=== PATIENT | female | born 1965 | race Caucasian/White ===

== ENCOUNTER → 2020-02-18 12:35 | Outpatient (BNVA) | payer BC, SELFPAY | PROVIDERS: Family Provider Family Medicine; Visit Provider Nurse Practitioner | DX: M54.5 Low back pain (principal); N39.0 Urinary tract infection, site not specified | CPT/HCPCS: 81000 ==

== ENCOUNTER 2020-02-24 16:11 | Inpatient (IN) | payer BC, SELFPAY ==
[2020-02-24] VITALS (9 sets, daily range): BP systolic 104–155; BP diastolic 59–84; PULSE 78–101; RESP 16–18; TEMP 37.4–39.5; O2SAT 90–98; BMI 28.3
[2020-02-24 17:49] LABS: Hematocrit 37.6 % (37.0-47.0); Hemoglobin 12.2 g/dL (11.5-15.3); Mean Corpuscular HGB Conc 32.4 g/dL (30.0-36.0); Mean Corpuscular Hemoglobin 28.2 pg (28.0-34.0); Mean Platelet Volume 10.5 fL (7.4-10.4); Nucleated Red Blood Cells % 0 %; Platelet Count 147 10^3/cmm (130-400); Red Blood Count 4.32 10^6/uL (4.1-5.3); Red Cell Distribution Width 14.2 % (12.1-15.1); White Blood Count 7.9 10^3/uL (4.0-10.0)
--- NOTE | 2020-02-24 17:52 | US_ITS ---
WS: [id number] ULTRASOUND ABDOMEN LIMITED CLINICAL INFORMATION: RUQ pain; N/V/D COMPARISON: None. FINDINGS: Liver Size: Normal. Craniocaudal length: 10.3 cm. Echogenicity: Normal. Surface nodularity: None. Mass (size and location): None. Bile ducts Intrahepatic ducts: Normal. Common bile duct diameter: 0.5 cm. Gallbladder Normal. Gallstones: None. Gallbladder sludge: None. Gallbladder wall thickening: None. Pericholecystic fluid: None. Sonographic Carl sign: Absent. Pancreas Not visualized Right kidney: Normal. Hydronephrosis: None. Size: 10.5 cm x 5.6 cm x 5.0 cm. Abdominal aorta and IVC Visualized portions are normal. Ascites: None. US/US gall bladder [id number] IMPRESSION: Normal right upper quadrant ultrasound
--- NOTE | 2020-02-24 17:52 | CTR_ITS ---
PROCEDURE INFORMATION: Exam: CT Abdomen And Pelvis With Contrast Exam date and time: 02/24/2020 6:07 PM Age: 54 years old Clinical indication: Nausea and vomiting and other: Diarrhea; Abdominal pain; Additional info: R sided abdominal pain; N/v/d; Fevers TECHNIQUE: Imaging protocol: Computed tomography of the abdomen and pelvis with intravenous contrast. Radiation optimization: All CT scans at this facility use at least one of these dose optimization techniques: automated exposure control; mA and/or kV adjustment per patient size (includes targeted exams where dose is matched to clinical indication); or iterative reconstruction. Contrast material: OMNI 300; Contrast volume: 95 ml; Contrast route: INTRAVENOUS (IV); COMPARISON: US gall bladder [id number] 02/24/2020 6:22 PM RADIATION DOSE METRICS: Total DLP (mGy-cm): 735.86 FINDINGS: Lungs: There is subpleural atelectasis of the dependent portions of the lungs. Pleural space: There are trace pleural effusions. Mediastinal space: A small hiatal hernia is present. Liver: There is a diffuse decrease in hepatic parenchymal density, consistent with fatty infiltration. Gallbladder and bile ducts: There is a small amount of sludge or stones in the gallbladder. There is no wall thickening or pericholecystic fluid to suggest cholecystitis. There is no common bile duct dilation. Pancreas: Normal. No ductal dilation. Spleen: The spleen is normal. An accessory splenule is present. Adrenals: Normal. No mass. Kidneys and ureters: The left kidney is normal. There is mild dilatation of the right renal pelvis but no calyceal dilatation. No contrast in the right ureter or right ureteral jet. There is a 3 mm calculus distal right ureter at the level of the right hip joint. There is a left ureteral jet. Stomach and bowel: There is no evidence of intestinal perforation or obstruction. Moderate diverticulosis is present in the distal colon. There is no evidence of colitis/diverticulitis. Appendix: A normal appendix is identified. Intraperitoneal space: Unremarkable. No free air. No significant fluid collection. Vasculature: The aorta demonstrates mild atherosclerotic calcification. Lymph nodes: Unremarkable.No enlarged lymph nodes. Bladder: The bladder is normal. Reproductive: Unremarkable as visualized. Bones/joints: Unremarkable. No acute fracture. Soft tissues: There is a fat-containing umbilical hernia. CT/CT abdomen pelvis w con* [id number] IMPRESSION: 1. There is mild dilatation of the right renal pelvis but no calyceal dilatation. No contrast in the right ureter or right ureteral jet. There is a 3 mm calculus distal right ureter at the level of the right hip joint. 2. Unremarkable appendix. No bowel thickening or inflammatory changes. Unremarkable appendix. Radiation Dose CTDIVOL = (mGy): DLP = 735.86 (mGy-cm)
--- NOTE | 2020-02-24 17:53 | XRR_ITS ---
PROCEDURE INFORMATION: Exam: XR Chest, 1 View Exam date and time: 02/24/2020 6:13 PM Age: 54 years old Clinical indication: Patient HX: C/O fever, malaise, headache, nausea, diarrhea; Additional info: Fevers, malaise. Diagnosed with UTI 02/17 TECHNIQUE: Imaging protocol: XR of the chest Views: 1 view. COMPARISON: CR Chest 1 [place] [id number] 09/15/2015 11:08 AM FINDINGS: Lungs: Unremarkable. No consolidation. Pleural space: Unremarkable. No pleural effusion. No pneumothorax. Heart/Mediastinum: Unremarkable. No cardiomegaly. Bones/joints: Unremarkable. XR/XR chest 1V portable [id number] IMPRESSION: No acute findings.
--- NOTE | 2020-02-24 17:54 | W.ED.GENADLT ---
Documented by User: MAHOGANY Galindo 02/24/20 20:58 HPI - General Adult General: Chief complaint: Nausea/Vomiting/Diarrhea Stated complaint: worsening UTI symptoms despite outpt treatment Time Seen by Provider: 02/24/20 17:18 Source: patient Mode of arrival: ambulatory Limitations: no limitations History of Present Illness: HPI narrative: Patient is a very nice 54-year-old female who presents to ED today with multiple complaints. Patient states she has been running fevers of up to 102?103 for the past week. She was seen at urgent care on 02/17 and diagnosed with a urinary tract infection and treated with Bactrim. Patient states she was not having UTI symptoms at the time apart from some mild lower back pain. Patient states since then she has been having joint pain, muscle aches. She reports a headache. She is having some right-sided abdominal pain accompanied with nausea and vomiting as well as diarrhea. She reports approximately 4 diarrhea stools a day. She has not had any hematemesis, melanotic stools, or hematochezia. Patient denies sick contacts. She is not having any shortness of breath, difficulty breathing, chest pain, cough. She denies sore throat, nasal congestion, rhinorrhea. She has not noticed a rash. She does admit to recent tick bites and was found on exam to have an engorged tick on her right upper arm. Onset (ago): day(s) Associated symptoms: Reports headache(s), malaise, nausea and vomiting; Deny chest pain, dyspnea, rash, palpitations or syncope Review of Systems Const: Reports: fever(s), chills, body aches, change in appetite, fatigue and malaise Eyes: Denies: change in vision, blurry vision, photophobia, floaters or seeing flashes ENMT: Denies: throat pain, odynophagia or nasal congestion Card: Denies: chest pain, palpitations, irregular heart rhythm, edema, lightheadedness, syncope, pre-syncope, dyspnea on exertion or orthopnea Resp: Denies: dyspnea, productive cough or pain on inspiration GI: Reports: abdominal pain, nausea, vomiting and diarrhea; Denies: heartburn, hematochezia or melena : Denies: flank pain, difficulty voiding, dysuria, urinary frequency, urinary urgency or urinary hesitancy Musc: Denies: neck pain, back pain or joint pain Skin/Breast: Denies: rash Neuro: Reports: headache(s); Denies: numbness in extremities, weakness in extremities or sensory changes PFSH ED PFSH: Social History (Updated 02/24/20 @ 17:12 by Berto Live RN) Smoking and tobacco status: never smoked Alcohol intake: never Substance/Drug Use: never Physical Exam Const: COMMON NORMALS: no acute distress, average body habitus, patient oriented x3, no limitations, healthy appearing, alert and well nourished GENERAL APPEARANCE: cooperative ORIENTATION/CONSCIOUSNESS: Yes oriented to person, Yes oriented to place and Yes oriented to time OTHER: looks like she doesn't feel well HENMT: COMMON NORMALS: normocephalic, atraumatic, hearing grossly normal bilaterally, external ears normal, EAC's normal, TM's normal bilaterally, Normal external nose present, Normal nasal mucous membranes and turbinates present, moist oral mucous membranes and oropharynx normal HEAD & SCALP: normal to inspection, normocephalic and atraumatic FACE & SINUS: normal facial exam and sinuses nontender NOSE: Normal external nose present and Normal nasal mucous membranes and turbinates present EXTERNAL EAR: Yes external ears normal EXTERNAL AUDITORY CANAL: EAC's normal TYMPANIC MEMBRANE: TM's normal bilaterally Eye: COMMON NORMALS: Equal, round and reactive pupils present, EOMs intact bilaterally, conjunctivae normal and no scleral icterus CONJUNCTIVA: Yes conjunctivae normal PUPIL: Yes Equal, round and reactive pupils present Neck/C-Spine: COMMON NORMALS: full ROM, no lymphadenopathy and no meningeal signs Chest: COMMONS NORMALS: normal inspection of the chest and normal palpation of entire chest wall Resp: COMMON NORMALS: normal respiratory effort and clear to auscultation bilaterally AUSCULTATION: clear to auscultation bilaterally Cardio: COMMON NORMALS: regular rate and regular rhythm RATE: regular rate RHYTHM: regular rhythm GI: COMMON NORMALS: Normal to inspection, nondistended, normoactive bowel sounds present, Soft to palpation, No hepatosplenomegaly present and no masses PALPATION: Yes Soft to palpation, Yes Tenderness to palpation present (GI) (RUQ, throughout lower abdomen) and Yes No hepatosplenomegaly present : COMMON NORMALS: Yes no CVA tenderness BLADDER/KIDNEY EXAM: Yes no CVA tenderness Back/Pelvis: COMMON NORMALS: no CVA tenderness Extremity: COMMON NORMALS: normal to inspection, capillary refill normal, no clubbing, cyanosis or edema, no calf tenderness and no pedal edema Neuro: FAISAL COMA SCALE: document GCS findings [place] coma scale eye opening: Spontaneous Faisal coma scale verbal response: Orientated [place] coma scale motor response: Obey commands [place] coma scale total score: 15 COMMON NORMALS: patient oriented x3, CN's II-XII intact bilaterally, moves all extremities, no focal motor deficits, no sensory deficits noted and gait normal SENSORIUM/ORIENTATION: Yes alert, Yes oriented to person, Yes oriented to place and Yes oriented to time MENINGEAL SIGNS: Yes no meningeal signs Skin: COMMON NORMALS: no rashes or lesions noted GENERAL SKIN EXAM: no rashes or lesions noted OTHER: engorged tick noted to R UE Course Consultations: Consultation #1: Dr. Becerra-accepts patient Vital Signs: Vital signs: Vital Signs Temperature 99.3 F 02/24/20 19:33 Pulse Rate 81 02/24/20 20:25 Respiratory Rate 17 02/24/20 20:25 Blood Pressure 121/63 02/24/20 20:25 Pulse Oximetry 95 02/24/20 20:25 MDM - General Adult MDM Narrative: Medical decision making narrative: Patient comes in today tachycardic and febrile. She complains of fevers, joint pains, headache, right-sided abdominal pain, nausea/vomiting. She has a known tick bite to her right upper arm. Labs showing mild hyponatremia and elevated LFTs which could be consistent with tick illness. Gallbladder ultrasound obtained due to elevated LFTs and her right-sided abdominal pain-this was negative. CT of her abdomen and pelvis showed a 3 mm right distal ureter stone which would explain her abdominal pain. UA is mildly suspicious for a UTI/she has negative nitrates and negative leukocyte esterase. This will be cultured. Patient has not been able to hold down her home medications at home due to the vomiting. I spoke to Dr. Becerra about admitting the patient for IV antibiotics. I have started her on IV doxycycline and he recommended IV Rocephin to cover her for UTI until we get culture report. I also spoke to Dr. Crocker regarding patient. Lab Data: Labs: Lab Results 07/14/20 07/14/20 07/14/20 Range/Units 17:30 17:30 17:30 WBC 7.9 (4.0-10.0) 10^3/ uL RBC 4.32 (4.1-5.3) 10^6/u L Hgb 12.2 (11.5-15.3) g/dL Hct 37.6 (37.0-47.0) % MCV 87.0 (81-99) fL MCH 28.2 (28.0-34.0) pg MCHC 32.4 (30.0-36.0) g/dL RDW 14.2 (12.1-15.1) % Plt Count 147 (130-400) 10^3/c mm MPV 10.5 H (7.4-10.4) fL Lymph % (Auto) Not Reportable [place] % (Auto) Not Reportable Lymph # (Auto) Not Reportable [place] # (Auto) Not Reportable Nucleated RBC % (a uto) 0 % Total Counted 100 (0-100) Atypical Lymphs % 13.0 H (0-5) % Segmented Neutroph ils 57 % Abs Segm Neuts (Ma n) 4.5 (1.6-7.1) 10/cmm Absolute Lymphocyt es 3.1 (1.2-3.4) 10^3/c mm Lymphocytes (Manua l) 26 % Monocytes (Manual) 4.0 % Absolute Monocytes 0.3 (0.1-0.6) 10^3/c mm Nucleated RBCs # 0.0 /100WBC Platelet Estimate Normal (Normal) Sodium 129 L (136-145) mmol/L Potassium 3.6 (3.5-5.1) mmol/L Chloride 91 L (98-107) mmol/L Carbon Dioxide 24 (22-29) mmol/L Anion Gap 17.6 (5-19) BUN 16 (6-20) mg/dL Creatinine 0.8 (0.5-0.9) mg/dL GFR Calculation 75.0 L (90-130) mL/min Glucose 117 H (65-115) mg/dL Calculated Osmolal ity 265 L (285-295) mOsm/k g Lactic Acid (0.5-2.2) mmol/L Calcium 8.5 (8.5-10.5) mg/dL Total Bilirubin 0.5 (0.15-1.2) mg/dL AST 127 H (0-32) U/L ALT 168 H (0-33) U/L Alkaline Phosphata se 91 (35-105) IU/L Total Protein 7.4 (6.6-8.7) g/dL Albumin 4.1 (3.5-5.2) g/dL Globulin 3.3 (1.3-4.6) g/dL Lipase (13-60) U/L HCG, Qual Negative (Negative) Urine Color (Yellow) Urine Appearance (CLEAR) Urine pH (5-7) Ur Specific Gravit y (1.005-1.030) Urine Protein (Negative) Urine Glucose (UA) (Normal) Urine Ketones (Negative) Urine Blood (Negative) Urine Nitrate (Negative) Urine Bilirubin (NEGATIVE) Urine Urobilinogen (Negative) mg/dL Ur Leukocyte Cheryl ase (Negative) Urine RBC (0-2) /hpf Urine WBC (0-5) /hpf Ur Squamous Epith Cells (0-5) Urine Bacteria (NONE) Urine Mucus Influenza Type A A g (Negative) Influenza Type B A g (Negative) 02/24/20 02/24/20 02/24/20 Range/Units 17:30 17:30 17:40 WBC (4.0-10.0) 10^3/ uL RBC (4.1-5.3) 10^6/u L Hgb (11.5-15.3) g/dL Hct (37.0-47.0) % MCV (81-99) fL MCH (28.0-34.0) pg MCHC (30.0-36.0) g/dL RDW (12.1-15.1) % Plt Count (130-400) 10^3/c mm MPV (7.4-10.4) fL Lymph % (Auto) [place] % (Auto) Lymph # (Auto) [place] # (Auto) Nucleated RBC % (a uto) % Total Counted (0-100) Atypical Lymphs % (0-5) % Segmented Neutroph ils % Abs Segm Neuts (Ma n) (1.6-7.1) 10/cmm Absolute Lymphocyt es (1.2-3.4) 10^3/c mm Lymphocytes (Manua l) % Monocytes (Manual) % Absolute Monocytes (0.1-0.6) 10^3/c mm Nucleated RBCs # /100WBC Platelet Estimate (Normal) Sodium (136-145) mmol/L Potassium (3.5-5.1) mmol/L Chloride (98-107) mmol/L Carbon Dioxide (22-29) mmol/L Anion Gap (5-19) BUN (6-20) mg/dL Creatinine (0.5-0.9) mg/dL GFR Calculation (90-130) mL/min Glucose (65-115) mg/dL Calculated Osmolal ity (285-295) mOsm/k g Lactic Acid 1.6 (0.5-2.2) mmol/L Calcium (8.5-10.5) mg/dL Total Bilirubin (0.15-1.2) mg/dL AST (0-32) U/L ALT (0-33) U/L Alkaline Phosphata se (35-105) IU/L Total Protein (6.6-8.7) g/dL Albumin (3.5-5.2) g/dL Globulin (1.3-4.6) g/dL Lipase 33 (13-60) U/L HCG, Qual (Negative) Urine Color Yellow (Yellow) Urine Appearance Clear (CLEAR) Urine pH 5 (5-7) Ur Specific Gravit y 1.015 (1.005-1.030) Urine Protein 2+ H (Negative) Urine Glucose (UA) Norm (Normal) Urine Ketones 1+ H (Negative) Urine Blood 2+ H (Negative) Urine Nitrate Negative (Negative) Urine Bilirubin 1+ H (NEGATIVE) Urine Urobilinogen 4+ H (Negative) mg/dL Ur Leukocyte Cheryl ase Negative (Negative) Urine RBC 5-10 H (0-2) /hpf Urine WBC 5-10 H (0-5) /hpf Ur Squamous Epith Cells 0-4 H (0-5) Urine Bacteria 1+ H (NONE) Urine Mucus 3+ Influenza Type A A g (Negative) Influenza Type B A g (Negative) 02/24/20 Range/Units 19:13 WBC (4.0-10.0) 10^3/ uL RBC (4.1-5.3) 10^6/u L Hgb (11.5-15.3) g/dL Hct (37.0-47.0) % MCV (81-99) fL MCH (28.0-34.0) pg MCHC (30.0-36.0) g/dL RDW (12.1-15.1) % Plt Count (130-400) 10^3/c mm MPV (7.4-10.4) fL Lymph % (Auto) [place] % (Auto) Lymph # (Auto) [place] # (Auto) Nucleated RBC % (a uto) % Total Counted (0-100) Atypical Lymphs % (0-5) % Segmented Neutroph ils % Abs Segm Neuts (Ma n) (1.6-7.1) 10/cmm Absolute Lymphocyt es (1.2-3.4) 10^3/c mm Lymphocytes (Manua l) % Monocytes (Manual) % Absolute Monocytes (0.1-0.6) 10^3/c mm Nucleated RBCs # /100WBC Platelet Estimate (Normal) Sodium (136-145) mmol/L Potassium (3.5-5.1) mmol/L Chloride (98-107) mmol/L Carbon Dioxide (22-29) mmol/L Anion Gap (5-19) BUN (6-20) mg/dL Creatinine (0.5-0.9) mg/dL GFR Calculation (90-130) mL/min Glucose (65-115) mg/dL Calculated Osmolal ity (285-295) mOsm/k g Lactic Acid (0.5-2.2) mmol/L Calcium (8.5-10.5) mg/dL Total Bilirubin (0.15-1.2) mg/dL AST (0-32) U/L ALT (0-33) U/L Alkaline Phosphata se (35-105) IU/L Total Protein (6.6-8.7) g/dL Albumin (3.5-5.2) g/dL Globulin (1.3-4.6) g/dL Lipase (13-60) U/L HCG, Qual (Negative) Urine Color (Yellow) Urine Appearance (CLEAR) Urine pH (5-7) Ur Specific Gravit y (1.005-1.030) Urine Protein (Negative) Urine Glucose (UA) (Normal) Urine Ketones (Negative) Urine Blood (Negative) Urine Nitrate (Negative) Urine Bilirubin (NEGATIVE) Urine Urobilinogen (Negative) mg/dL Ur Leukocyte Cheryl ase (Negative) Urine RBC (0-2) /hpf Urine WBC (0-5) /hpf Ur Squamous Epith Cells (0-5) Urine Bacteria (NONE) Urine Mucus Influenza Type A A g Negative (Negative) Influenza Type B A g Negative (Negative) Imaging Data^: US gallbladder : My impression: Per Kelvin Parekh manufacturing technologist?normal gallbladder study, overlying bowel gas, was not able to visualize pancreas Discharge Plan Discharge Patient Disposition: Admitted As Inpatient Clinical Impression: Tick fever, Calculus of distal right ureter, Urinary tract infection Condition: Stable Prescriptions: No Action lisinopril 20 mg tablet 20 mg PO BID RF: 0 hydrochlorothiazide 25 mg tablet 25 mg PO DAILY RF: 0 aspirin [Adult Aspirin Regimen] 81 mg tablet,delayed release (DR/EC) 81 mg PO DAILY RF: 0 sulfamethoxazole-trimethoprim 800-160 mg tablet 1 tab PO BID 5 Days Qty: 10 RF: 0 Referrals: Umair Quick MD [Primary Care Provider] - Coding Level of Care Code ED Informatics Nurse Specialist for Chg Fwd Exam Comprehensive Documented by User: Jessica Crocker MD 02/24/20 20:17 HPI - General Adult General: Chief complaint: Nausea/Vomiting/Diarrhea Stated complaint: worsening UTI symptoms despite outpt treatment Time Seen by Provider: 02/24/20 17:18 PFS ED PFSH: Social History (Updated 02/24/20 @ 17:12 by Berot Live RN) Smoking and tobacco status: never smoked Alcohol intake: never Substance/Drug Use: never Course ED course: I am seeing this patient with Araceli. The patient appeared quite ill on initial presentation. She was tachycardic with a high fever. She was treated recently for UTI and completed a course of Bactrim. She continues to have right-sided abdominal pain and on exam was found to have a tick which was fully engorged on her right arm. Work-up shows a possible UTI and obviously there is concern for tick illness related to her tick bite. CT showed a kidney stone which was fairly small and distal. She had a relatively normal ultrasound of her gallbladder. Given her ill appearance initially, abnormal vital signs, inability to keep down p.o., she will be admitted to the hospital for IV antibiotics and further monitoring. Vital Signs: Vital signs: Vital Signs Temperature 99.3 F 02/24/20 19:33 Pulse Rate 81 02/24/20 20:25 Respiratory Rate 17 02/24/20 20:25 Blood Pressure 121/63 02/24/20 20:25 Pulse Oximetry 95 02/24/20 20:25 [facility] - General Adult Lab Data: Labs: Lab Results 02/24/20 02/24/20 02/24/20 Range/Units 17:30 17:30 17:30 WBC 7.9 (4.0-10.0) 10^3/ uL RBC 4.32 (4.1-5.3) 10^6/u L Hgb 12.2 (11.5-15.3) g/dL Hct 37.6 (37.0-47.0) % MCV 87.0 (81-99) fL MCH 28.2 (28.0-34.0) pg MCHC 32.4 (30.0-36.0) g/dL RDW 14.2 (12.1-15.1) % Plt Count 147 (130-400) 10^3/c mm MPV 10.5 H (7.4-10.4) fL Lymph % (Auto) Not Reportable [place] % (Auto) Not Reportable Lymph # (Auto) Not Reportable [place] # (Auto) Not Reportable Nucleated RBC % (a uto) 0 % Total Counted 100 (0-100) Atypical Lymphs % 13.0 H (0-5) % Segmented Neutroph ils 57 % Abs Segm Neuts (Ma n) 4.5 (1.6-7.1) 10/cmm Absolute Lymphocyt es 3.1 (1.2-3.4) 10^3/c mm Lymphocytes (Manua l) 26 % Monocytes (Manual) 4.0 % Absolute Monocytes 0.3 (0.1-0.6) 10^3/c mm Nucleated RBCs # 0.0 /100WBC Platelet Estimate Normal (Normal) Sodium 129 L (136-145) mmol/L Potassium 3.6 (3.5-5.1) mmol/L Chloride 91 L (98-107) mmol/L Carbon Dioxide 24 (22-29) mmol/L Anion Gap 17.6 (5-19) BUN 16 (6-20) mg/dL Creatinine 0.8 (0.5-0.9) mg/dL GFR Calculation 75.0 L (90-130) mL/min Glucose 117 H (65-115) mg/dL Calculated Osmolal ity 265 L (285-295) mOsm/k g Lactic Acid (0.5-2.2) mmol/L Calcium 8.5 (8.5-10.5) mg/dL Total Bilirubin 0.5 (0.15-1.2) mg/dL AST 127 H (0-32) U/L ALT 168 H (0-33) U/L Alkaline Phosphata se 91 (35-105) IU/L Total Protein 7.4 (6.6-8.7) g/dL Albumin 4.1 (3.5-5.2) g/dL Globulin 3.3 (1.3-4.6) g/dL Lipase (13-60) U/L HCG, Qual Negative (Negative) Urine Color (Yellow) Urine Appearance (CLEAR) Urine pH (5-7) Ur Specific Gravit y (1.005-1.030) Urine Protein (Negative) Urine Glucose (UA) (Normal) Urine Ketones (Negative) Urine Blood (Negative) Urine Nitrate (Negative) Urine Bilirubin (NEGATIVE) Urine Urobilinogen (Negative) mg/dL Ur Leukocyte Cheryl ase (Negative) Urine RBC (0-2) /hpf Urine WBC (0-5) /hpf Ur Squamous Epith Cells (0-5) Urine Bacteria (NONE) Urine Mucus Influenza Type A A g (Negative) Influenza Type B A g (Negative) 02/24/20 02/24/20 02/24/20 Range/Units 17:30 17:30 17:40 WBC (4.0-10.0) 10^3/ uL RBC (4.1-5.3) 10^6/u L Hgb (11.5-15.3) g/dL Hct (37.0-47.0) % MCV (81-99) fL MCH (28.0-34.0) pg MCHC (30.0-36.0) g/dL RDW (12.1-15.1) % Plt Count (130-400) 10^3/c mm MPV (7.4-10.4) fL Lymph % (Auto) [place] % (Auto) Lymph # (Auto) [place] # (Auto) Nucleated RBC % (a uto) % Total Counted (0-100) Atypical Lymphs % (0-5) % Segmented Neutroph ils % Abs Segm Neuts (Ma n) (1.6-7.1) 10/cmm Absolute Lymphocyt es (1.2-3.4) 10^3/c mm Lymphocytes (Manua l) % Monocytes (Manual) % Absolute Monocytes (0.1-0.6) 10^3/c mm Nucleated RBCs # /100WBC Platelet Estimate (Normal) Sodium (136-145) mmol/L Potassium (3.5-5.1) mmol/L Chloride (98-107) mmol/L Carbon Dioxide (22-29) mmol/L Anion Gap (5-19) BUN (6-20) mg/dL Creatinine (0.5-0.9) mg/dL GFR Calculation (90-130) mL/min Glucose (65-115) mg/dL Calculated Osmolal ity (285-295) mOsm/k g Lactic Acid 1.6 (0.5-2.2) mmol/L Calcium (8.5-10.5) mg/dL Total Bilirubin (0.15-1.2) mg/dL AST (0-32) U/L ALT (0-33) U/L Alkaline Phosphata se (35-105) IU/L Total Protein (6.6-8.7) g/dL Albumin (3.5-5.2) g/dL Globulin (1.3-4.6) g/dL Lipase 33 (13-60) U/L HCG, Qual (Negative) Urine Color Yellow (Yellow) Urine Appearance Clear (CLEAR) Urine pH 5 (5-7) Ur Specific Gravit y 1.015 (1.005-1.030) Urine Protein 2+ H (Negative) Urine Glucose (UA) Norm (Normal) Urine Ketones 1+ H (Negative) Urine Blood 2+ H (Negative) Urine Nitrate Negative (Negative) Urine Bilirubin 1+ H (NEGATIVE) Urine Urobilinogen 4+ H (Negative) mg/dL Ur Leukocyte Cheryl ase Negative (Negative) Urine RBC 5-10 H (0-2) /hpf Urine WBC 5-10 H (0-5) /hpf Ur Squamous Epith Cells 0-4 H (0-5) Urine Bacteria 1+ H (NONE) Urine Mucus 3+ Influenza Type A A g (Negative) Influenza Type B A g (Negative) 02/24/20 Range/Units 19:13 WBC (4.0-10.0) 10^3/ uL RBC (4.1-5.3) 10^6/u L Hgb (11.5-15.3) g/dL Hct (37.0-47.0) % MCV (81-99) fL MCH (28.0-34.0) pg MCHC (30.0-36.0) g/dL RDW (12.1-15.1) % Plt Count (130-400) 10^3/c mm MPV (7.4-10.4) fL Lymph % (Auto) [place] % (Auto) Lymph # (Auto) [place] # (Auto) Nucleated RBC % (a uto) % Total Counted (0-100) Atypical Lymphs % (0-5) % Segmented Neutroph ils % Abs Segm Neuts (Ma n) (1.6-7.1) 10/cmm Absolute Lymphocyt es (1.2-3.4) 10^3/c mm Lymphocytes (Manua l) % Monocytes (Manual) % Absolute Monocytes (0.1-0.6) 10^3/c mm Nucleated RBCs # /100WBC Platelet Estimate (Normal) Sodium (136-145) mmol/L Potassium (3.5-5.1) mmol/L Chloride (98-107) mmol/L Carbon Dioxide (22-29) mmol/L Anion Gap (5-19) BUN (6-20) mg/dL Creatinine (0.5-0.9) mg/dL GFR Calculation (90-130) mL/min Glucose (65-115) mg/dL Calculated Osmolal ity (285-295) mOsm/k g Lactic Acid (0.5-2.2) mmol/L Calcium (8.5-10.5) mg/dL Total Bilirubin (0.15-1.2) mg/dL AST (0-32) U/L ALT (0-33) U/L Alkaline Phosphata se (35-105) IU/L Total Protein (6.6-8.7) g/dL Albumin (3.5-5.2) g/dL Globulin (1.3-4.6) g/dL Lipase (13-60) U/L HCG, Qual (Negative) Urine Color (Yellow) Urine Appearance (CLEAR) Urine pH (5-7) Ur Specific Gravit y (1.005-1.030) Urine Protein (Negative) Urine Glucose (UA) (Normal) Urine Ketones (Negative) Urine Blood (Negative) Urine Nitrate (Negative) Urine Bilirubin (NEGATIVE) Urine Urobilinogen (Negative) mg/dL Ur Leukocyte Cheryl ase (Negative) Urine RBC (0-2) /hpf Urine WBC (0-5) /hpf Ur Squamous Epith Cells (0-5) Urine Bacteria (NONE) Urine Mucus Influenza Type A A g Negative (Negative) Influenza Type B A g Negative (Negative) Discharge Plan Discharge Patient Disposition: Admitted As Inpatient Clinical Impression: Tick fever, Calculus of distal right ureter, Urinary tract infection Condition: Stable Prescriptions: No Action lisinopril 20 mg tablet 20 mg PO BID RF: 0 hydrochlorothiazide 25 mg tablet 25 mg PO DAILY RF: 0 aspirin [Adult Aspirin Regimen] 81 mg tablet,delayed release (DR/EC) 81 mg PO DAILY RF: 0 sulfamethoxazole-trimethoprim 800-160 mg tablet 1 tab PO BID 5 Days Qty: 10 RF: 0 Referrals: Umair Quick MD [Primary Care Provider] - Coding Level of Care Code ED Informatics Nurse Specialist for g Fwd Exam Comprehensive
[2020-02-24 18:03] LABS: Specific Gravity, Urine 1.015 (1.005-1.030); Urine Appearance Clear (CLEAR); Urine Color Yellow (Yellow); pH Urine 5 (5-7)
[2020-02-24 18:04] LABS: Bilirubin Urine 1+ (NEGATIVE); Blood Urine 2+ (Negative); Glucose Urine UA Norm (Normal); Ketones Urine 1+ (Negative); Leukocyte Esterase Urine Negative (Negative); Nitrate Urine Negative (Negative); Protein Urine 2+ (Negative); Urobilinogen Urine 4+ mg/dL (Negative)
[2020-02-24 18:12] LABS: Lactic Sepsis W/Reflex 1.6 mmol/L (0.5-2.2)
[2020-02-24 18:13] LABS: Alanine Aminotransferase 168 U/L (0-33); Albumin Level 4.1 g/dL (3.5-5.2); Alkaline Phosphatase 91 IU/L (35-105); Anion Gap 17.6 (5-19); Aspartate Amino Transferase 127 U/L (0-32); Blood Urea Nitrogen 16 mg/dL (6-20); Calcium 8.5 mg/dL (8.5-10.5); Carbon Dioxide 24 mmol/L (22-29); Chloride 91 mmol/L (98-107); Globulin 3.3 g/dL (1.3-4.6); Glucose 117 mg/dL (65-115); Osmolality Calculated 265 mOsm/kg (285-295); Potassium 3.6 mmol/L (3.5-5.1); Sodium 129 mmol/L (136-145); Total Bilirubin 0.5 mg/dL (0.15-1.2); Total Protein 7.4 g/dL (6.6-8.7)
[2020-02-24 18:15] LABS: HCG, Serum Qual Negative (Negative)
[2020-02-24 18:16] LABS: Add Urine Culture? Yes; Bacteria Urine 1+; Mucus Urine 3+; Squamous Epithelial Cell Urine 0-4 (0-5)
[2020-02-24] MEDS: ondansetron 2 mg/ML SDV 2 mL 4 MG IVP (18:16)
[2020-02-24] MEDS: acetaminophen 500 mg Tablet 1000 MG PO (18:16)
[2020-02-24] MEDS: morphine 4 mg/mL SDV 1 mL IVP (18:18)
--- NOTE | 2020-02-24 18:31 | PC.NURSE ---
lying 136/79 hr 129 /74 hr 94 standing 107/71 hr 138
[2020-02-24 18:35] LABS: Slide Review Slide Review Perform
[2020-02-24 18:37] LABS: Absolute Segmented Neutrophil 4.5 10/cmm (1.6-7.1); Lymphocytes 26 %; Lymphocytes Absolute 3.1 10^3/cmm (1.2-3.4); Monocytes Absolute 0.3 10^3/cmm (0.1-0.6); Platelet Estimate Normal (Normal); Segmented Neutrophils 57 %; Total Cells Counted 100 (0-100)
[2020-02-24] MEDS: iohexol 300 mg/mL 100 mL Btl IV (19:01)
[2020-02-24] MEDS: sodium chloride 0.9% 1,000 ML 999 ML IV (19:03)
--- NOTE | 2020-02-24 19:10 | PC.NURSE ---
Report received from AMADOU Haney and care transferred to AMADOU Parikh
[2020-02-24 19:19] LABS: Lipase 33 U/L (13-60)
[2020-02-24 19:53] LABS: Influenza A by IFA Negative (Negative); Influenza B by IFA Negative (Negative)
[2020-02-24] MEDS: doxycycline 100 MG in sodium chloride 0.9% (plus) 100 ML IV (20:23)
[2020-02-24] MEDS: cefTRIAXone 1,000 MG in sodium chloride 0.9% (plus) 50 ML 100 MG IV (21:55)
--- NOTE | 2020-02-24 22:58 | PM.HP ---
Providers/Chief Complaint Admitting Physician: Giovanny Becerra Primary Care Provider: Umair Quick MD Chief Complaint: n/v,poss uti History of Present Illness Sary Perera is a pleasant 54 year old lady with past history of hypertension, but otherwise only on prophylactic aspirin, started feeling unwell in February 14, with headache, fever, malaise, nausea, vomiting, was assessed at urgent care clinic and treated with a course of Bactrim for urinary tract infection, subsequently also developed diarrhea, with poor appetite and oral intake. Recurrent fevers of 103-104 Fahrenheit. She denies shortness of breath or cough. Has been having muscle aches, sweats. 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 She reports also that yesterday on self-examination found an engorged tick on the proximal medial right arm. She put some rubbing alcohol on it, pulled off and subsequently put some alcohol on the wound. It was painful. She denies any subsequent rash. Report she has been watching her cell for any rashes as she is not tolerated the antibiotic well. She overall has not felt particularly better, and with poor oral intake, just the nausea, episodes of vomiting, fevers, headache, decided to come into ER for evaluation. Here with noted fever 103.1. Initially tachycardia, sinus of 101 bpm. Without leukocytosis. With normal platelet level, however, with mild hyponatremia, with transaminitis, AST 127, ALT 168. Limited ultrasound of right upper quadrant was performed without reported biliary abnormality, although final report is still bending and is to be followed up. Urinalysis with 5-10 WBC, 5-[address] abdomen pelvis, however, with noted 3 mm distal right ureteral stone, without hydronephrosis or hydroureter. Decline has been sent off. She is empirically started on doxycycline. As well as Rocephin. She at this time states does not have a lot of appetite. Has been having persistent nausea. Does not want to try anything more than clear liquids. Reports that due to poor oral intake has not been taking her blood pressure medications, although blood pressures have not been elevated at all. Review of Systems Const: Denies: fever(s), chills, body aches or malaise Eyes: Denies: change in vision or eye redness ENMT: Denies: throat pain, oral sores or ear or mastoid pain Card: Denies: chest pain, edema, pre-syncope or dyspnea on exertion Resp: Denies: dyspnea, productive cough, change in phlegm color or hemoptysis GI: Denies: abdominal pain, nausea, vomiting, diarrhea, constipation, hematochezia or melena : Denies: flank pain, urinary frequency or hematuria Musc: Denies: back pain, joint swelling or joint redness Skin/Breast: Denies: rash, sores or new lesions Neuro: Denies: headache(s), numbness in extremities, weakness in extremities, dizziness, confusion or seizure-like activity Endo: Denies: polyuria or polydipsia Juan C/Lymph: Denies: easy bleeding or purpura All/Imm: Denies: urticaria, throat swelling or tongue swelling Medications/Allergies Home Medications Medication Instructions Recorded Confirmed Last Taken Type aspirin 81 mg tablet,delayed 81 mg PO DAILY 02/18/20 02/18/20 Unknown History release hydrochlorothiazide 25 mg tablet 25 mg PO DAILY 02/18/20 02/18/20 Unknown History lisinopril 20 mg tablet 20 mg PO BID 02/18/20 02/18/20 Unknown History sulfamethoxazole 800 1 tab PO BID 5 Days #10 tab 02/18/20 02/18/20 Unknown Rx mg-trimethoprim 160 mg tablet Allergies Allergy/AdvReac Type Severity Reaction Status Date / Time No Known Allergies Allergy Verified 02/18/20 12:26 PFSH Acute PFSH: Medical History HTN (hypertension) Surgical History No pertinent past surgical history Family History Mother COPD (chronic obstructive pulmonary disease) Social History Smoking and tobacco status: never smoked Alcohol intake: never Substance/Drug Use: never Lives independently: Yes Household members: spouse Marital status: Current occupational status: employed Vitals/I&O/Wt Last Vital Signs Temp 99.3 F 02/24/20 19:33 Pulse 78 02/24/20 22:44 Resp 17 02/24/20 22:44 BP 104/59 02/24/20 22:44 Pulse Ox 95 02/24/20 22:44 02/24/20 02/24/20 02/24/20 06:59 14:59 22:59 Intake Total 1150 / 1150 Balance 1150 / 1150 Weight last 48 hrs Weight 77.111 kg Physical Exam Const: COMMON NORMALS: no acute distress and patient oriented x3 NUTRITIONAL APPEARANCE: overweight OTHER: Malaise/discomfort secondary to headache HENMT: COMMON NORMALS: oropharynx normal Neck/C-Spine: COMMON NORMALS: no JVD Resp: COMMON NORMALS: normal respiratory effort and clear to auscultation bilaterally AUSCULTATION: clear to auscultation bilaterally Cardio: COMMON NORMALS: no JVD, regular rhythm, S1 normal heart sound present, S2 normal heart sound present and No murmurs present (Cardio) RHYTHM: regular rhythm HEART SOUNDS: S1 normal heart sound present and S2 normal heart sound present GI: COMMON NORMALS: Normal to inspection, nondistended, normoactive bowel sounds present, Soft to palpation and non-tender PALPATION: Yes Soft to palpation and Yes Tenderness to palpation present (GI) (Mild diffuse tenderness/abdominal wall soreness) Extremity: COMMON NORMALS: no joint enlargement and no pedal edema Neuro: COMMON NORMALS: patient oriented x3 and moves all extremities Skin: COMMON NORMALS: no rashes or lesions noted GENERAL SKIN EXAM: no rashes or lesions noted Data : 02/24/20 17:30 02/24/20 17:30 Micro: Microbiology 02/24/20 17:25 Blood Culture - Preliminary Blood SPECIMEN COLLECTED 02/24/20 17:30 Blood Culture - Preliminary Blood SPECIMEN COLLECTED A&P Assessment and plan (1) Sepsis: Sepsis on presentation, with fever up to 103.1. Initially sinus tachycardia 101. Recurrent fever since February 14. Also associated with general malaise, headache, nausea, vomiting, after completing course of Bactrim also reports some diarrhea which has been resolving currently. Poor appetite and oral intake. Blood pressure appears stable. There is mild hyponatremia, transaminitis. Limited abdominal ultrasound of right upper quadrant without gallbladder abnormality per primary read, however, please review final report. There is mild diffuse abdominal tenderness from dry heaving/vomiting. Blood culture ordered. Lactic acid is normal. Received empiric antibiotic due to suspected possible undertreated urinary tract infection, with at this time appears to be nonobstructive 3 mm distal right ureteral stone. No hydro-or a return nephrosis is noted at this time, however, would touch base with urology tomorrow on nonurgent basis for any additional recommendations. For now empirically on Rocephin. Old urine culture reviewed in prior [facility] with pansensitive E. coli. At this time also tickborne illness is suspected given she found engorged tick on proximal medial right arm yesterday, as well as with transaminitis, mild hyponatremia. Low normal platelets at 147,000. No significant anemia is noted. No leukopenia. Distant empirically started on doxycycline. Tick panel has been requested. Would monitor blood counts, platelet level. She does appear may be somewhat hemoconcentrated secondary to dehydration, poor oral intake. Will assess for COVID 19 given persistent fevers, malaise, body aches, sweats, although has other causes to explain these symptoms and has been self-isolating. Status: Acute (2) Dehydration: Continue gentle IV hydration. For now clear liquid diet as she does not feel she could tolerate anything more than that. Status: Acute (3) Transaminitis: Please follow-up final results of gallbladder ultrasound. So far not reported any biliary pathology. This appears may be secondary to tickborne fever. Empirically on doxycycline at this time. Tick panel requested. Follow-up levels. We will request hepatitis panel. Status: Acute (4) Calculus of distal right ureter: 3 mm stone noted in distal right ureter. No hydroureter ureter nephrosis. At this time will treat as nonobstructive urinary tract infection, however, would touch base with urology on nonemergent basis for any additional recommendations given ongoing/recurrent fevers, although does appear to have other conditions responsible for this. Stone of this size usually would be expected to be able to pass on its own. Strain urine. Status: Acute (5) Urinary tract infection: As above. At this time will treat as nonobstructive urinary tract infection, however, will touch base with urology on nonemergent basis for any additional recommendations given ongoing/recurrent fevers, although does appear to have other conditions responsible for this. Status: Acute Qualifiers: Hematuria presence: with hematuria Urinary tract infection type: acute cystitis Qualified Code(s): N30.01 - Acute cystitis with hematuria (6) Hyponatremia: Mild hyponatremia, sodium 129. Suspect this may be hypovolemic with poor oral intake, nausea, vomiting. Received IV hydration with normal saline. For now we will continue gentle hydration with LR. Reassess sodium. Status: Acute Additional A&P Information Persistent nausea and vomiting: Suspect this is secondary to general medical condition with [place] tickborne infection, or possibly still undertreated urinary tract infection. Ureteral stone. At this time we will add PPI. Continue symptomatic treatment. Diarrhea: Reports after receiving Bactrim. This appears has been improving. Will order C. difficile in case there is worsening/more liquid stools. Hx HTN: hold medications for now. Attestations Medical Necessity Statement*: Admission of over 2 midnights is been admitted for assessment management of sepsis, suspected tickborne fever, urinary tract infection. Intractable nausea, vomiting, dehydration with lack of oral intake. Coding Level of Care Code Acute [employer] [facility] Diagnoses Sepsis A41.9 Dehydration E86.0 Transaminitis R74.0 Calculus of distal right ureter N20.1 Urinary tract infection N30.01 Hematuria presence: with hematuria Urinary tract infection type: acute cystitis Hyponatremia E87.1
[2020-02-25] VITALS (7 sets, daily range): BP systolic 115–135; BP diastolic 70–79; PULSE 84–95; RESP 14–18; TEMP 37.3–39.3; O2SAT 93–97
[2020-02-25] MEDS: pantoprazole 40 mg SDV IVP ×2 (00:05→08:31)
[2020-02-25] MEDS: heparin 5,000 unit/mL INJ 1 mL 5000 UNIT SUBCUT ×3 (00:07→17:59)
[2020-02-25] MEDS: lactated ringers 1,000 ML 75 ML IV ×2 (00:07→12:26)
[2020-02-25] MEDS: acetaminophen 325 mg Tablet 650 MG PO ×3 (00:09→21:59)
[2020-02-25 05:18] LABS: Partial Thromboplastin Time 20.5 SECONDS (23.9-36.7)
[2020-02-25 05:47] LABS: Hepatitis A Antibody IgM Non-Reactive (Nonreactive); Hepatitis B Core IgM Non-Reactive (Nonreactive); Hepatitis B Surface Antigen Non-Reactive (Nonreactive); Hepatitis C Virus Antibody Non-Reactive (Nonreactive)
[2020-02-25 06:19] LABS: Alanine Aminotransferase 144 U/L (0-33); Albumin Level 3.3 g/dL (3.5-5.2); Alkaline Phosphatase 72 IU/L (35-105); Aspartate Amino Transferase 126 U/L (0-32); Blood Urea Nitrogen 13 mg/dL (6-20); Calcium 7.8 mg/dL (8.5-10.5); Carbon Dioxide 22 mmol/L (22-29); Chloride 97 mmol/L (98-107); Globulin 2.9 g/dL (1.3-4.6); Glomerular Filtration Rate 87.5 mL/min (90-130); Glucose 98 mg/dL (65-115); Magnesium 1.9 mg/dL (1.7-2.3); Osmolality Calculated 264 mOsm/kg (285-295); Sodium 129 mmol/L (136-145); Total Bilirubin 0.4 mg/dL (0.15-1.2); Total Protein 6.2 g/dL (6.6-8.7)
[2020-02-25 06:24] LABS: Anion Gap 13.3 (5-19); Potassium 3.3 mmol/L (3.5-5.1)
[2020-02-25 07:21] LABS: Basophils % 0.4 %; Eosinophils # 0.1 10^3/uL (0.0-0.8); Eosinophils % 1.4 %; Hematocrit 33.4 % (37.0-47.0); Hemoglobin 10.6 g/dL (11.5-15.3); Lymphocytes # 3.4 10^3/uL (0.8-4.8); Lymphocytes % 43.2 %; Mean Corpuscular HGB Conc 31.7 g/dL (30.0-36.0); Mean Corpuscular Hemoglobin 27.5 pg (28.0-34.0); Mean Corpuscular Volume 86.5 fL (81-99); Mean Platelet Volume 10.7 fL (7.4-10.4); Monocytes # 0.7 10^3/uL (0.2-0.9); Monocytes % 8.6 %; Neutrophils # 3.56 10^3/uL (1.8-7.7); Neutrophils % 45.9 %; Nucleated Red Blood Cells % 0 %; Platelet Count 153 10^3/cmm (130-400); Red Blood Count 3.86 10^6/uL (4.1-5.3); Red Cell Distribution Width 14.6 % (12.1-15.1); White Blood Count 7.8 10^3/uL (4.0-10.0)
[2020-02-25 08:13] LABS: Slide Review Slide Review Perform
[2020-02-25] MEDS: doxycycline 100 MG in sodium chloride 0.9% (plus) 100 ML IV (08:31)
--- NOTE | 2020-02-25 09:47 | PC.CHAP ---
Pastoral Care Encounter/Spiritual Assessment Type of Contact [] Declined crm manager visit [] Patient/Family/Request visit [] Outpatient visit [] Follow-up visit [] Physician referral [] Code/Alert [x] Routine visit [] Staff referral [] Actively dying [] Patient sleeping [] Family support [] [] Out of room [] Palliative care [] [] Receiving care in room [] Pre-surgical visit [] Trauma [] Long length of stay [] ICU visit [] Other: Relational/Emotional Strength [] Patient feels connected with others/family/visitors/staff [] Distress [] Loneliness/isolation [] Abandonment Spirituality of Patient [] Person of Gema [] Attends Jain of their Gema [] Believes in Prayer [] Reads Bible or Jew materials [] There are Spiritual issues to be addressed Coating And Baking Operator Interventions [x] Prayer [x] Active listening [x] Non-anxious presence [x] Spiritual/emotional support [] Crisis/trauma care [] Spiritual counseling [] Bereavement support [] Provided bereavement packet [] Provided Bible/devotional materials [] Provided toy/stuffed animal, coloring book to patient or family member [] Provided Communion [] Anointing/[place] [] Salvation [x] Completed spiritual assessment [] Other: Impact on Illness or Injury [] Angry [] Fearful [] Anxious [] Often cries [] Exhaustion [] Unable to work [] Unable to attend christian [] Unable to walk/stand [] Unable to read [] Unable to drive [] Unable to eat/drink [] Unable to sleep [] Unable to be with family [] Patient intubated [] Other: Summary Patient undergoing test... waiting for results.. stiff neck, but resting well. Time spent with patient 15 min
--- NOTE | 2020-02-25 17:11 | P.PN_ITS ---
Subjective Subjective: Interval history: Chart reviewed, patient resting in bed, difficulty establishing peripheral IV access despite multiple attempts including by anesthesia. Had 300 mL urine output overnight, continues to have some urinary urgency but is voiding easier. Tmax-103.1 F but has been afebrile since 0800. Will switch meds to PO if possible. Would like diet advanced. Medications: Reviewed: Yes Medication Review Details: Active Medications Generic Name Dose Route Start Last Admin Trade Name Freq PRN Reason Stop Dose Admin Acetaminophen 650 mg 02/24/20 23:29 02/25/20 08:31 Tylenol PO 650 mg Q6H PRN Administration Mild/Mod Pain Or Temp >/= 101 Heparin Sodium (Be ef Lung) 5,000 unit 02/24/20 23:30 02/25/20 08:31 Heparin SUBCUT 5,000 unit Q8H MARCIN Administration Lactated Ringer's 1,000 mls @ 75 ml s/hr 02/24/20 23:30 02/25/20 12:26 Lactated Ringers IV 75 mls/hr .[id number] MARCIN Administration Ceftriaxone Sodium 1,000 mg/ 50 mls @ 100 mls/ hr 02/25/20 20:00 Sodium Chloride IV Q24H MARCIN Protocol Doxycycline Hyclat e 100 mg/ 100 mls @ 100 mls /hr 02/25/20 08:30 02/25/20 12:26 Sodium Chloride IV Infused Q12H MARCIN Infusion Protocol Ondansetron HCl 4 mg 02/24/20 23:25 Zofran IVP Q4H PRN NAUSEA AND VOMITI NG Pantoprazole Sodiu m 40 mg 02/24/20 23:30 02/25/20 08:31 Protonix IVP 40 mg DAILY MARCIN Administration No Known Allergies Allergy (Verified 02/18/20 12:26) Vitals/I&O/Wt Last Vital Signs Temp 99.5 F 02/25/20 16:00 Pulse 84 02/25/20 16:00 Resp 18 02/25/20 16:00 BP 115/70 02/25/20 16:00 Pulse Ox 97 02/25/20 16:00 02/25/20 02/25/20 02/25/20 06:59 14:59 22:59 Intake Total 1128.75 / 1128.75 Output Total 300 / 300 Balance -300 / 850 1128.75 / 1128.75 Weight last 48 hrs Weight 80.15 kg Weight 77.111 kg Physical Exam Const: COMMON NORMALS: no acute distress and patient oriented x3 GENERAL APPEARANCE: cooperative and comfortable; not ill appearing NUTRITIONAL APPEARANCE: overweight ORIENTATION/CONSCIOUSNESS: Yes awake HENMT: COMMON NORMALS: normocephalic, atraumatic, hearing grossly normal bilaterally and moist oral mucous membranes HEAD & SCALP: normocephalic and atraumatic Eye: COMMON NORMALS: Equal, round and reactive pupils present, EOMs intact bilaterally and conjunctivae normal CONJUNCTIVA: Yes conjunctivae normal PUPIL: Yes Equal, round and reactive pupils present Neck/C-Spine: COMMON NORMALS: full ROM GENERAL: Yes normal visual inspection and Yes trachea midline Resp: COMMON NORMALS: normal respiratory effort, No retractions, No use of accessory muscles and clear to auscultation bilaterally EFFORT & INSPECTION: Yes able to speak in complete sentences, Yes symmetric chest movement and No tachypneic AUSCULTATION: clear to auscultation bilaterally Cardio: COMMON NORMALS: regular rate, regular rhythm, S1 normal heart sound present, S2 normal heart sound present and No murmurs present (Cardio) RATE: regular rate RHYTHM: regular rhythm HEART SOUNDS: S1 normal heart sound present and S2 normal heart sound present GI: COMMON NORMALS: Normal to inspection, nondistended, normoactive bowel sounds present, Soft to palpation and non-tender PALPATION: Yes Soft to palpation Extremity: COMMON NORMALS: normal to inspection, full ROM and no clubbing, cyanosis or edema; negative for no pedal edema Neuro: COMMON NORMALS: patient oriented x3, moves all extremities, no focal motor deficits and no sensory deficits noted Psych: COMMON NORMALS: mental status grossly normal, Normal thought process present, cooperative, normal affect and speech normal SPEECH: Yes normal speech THOUGHT PROCESS: Normal thought process present Skin: COMMON NORMALS: no rashes or lesions noted, no jaundice, no petechiae and no mottling GENERAL SKIN EXAM: no rashes or lesions noted Data : 02/25/20 07:12 02/25/20 04:20 Micro: Microbiology 02/24/20 17:25 Blood Culture - Preliminary Blood SPECIMEN COLLECTED 02/24/20 17:30 Blood Culture - Preliminary Blood SPECIMEN COLLECTED A&P Assessment and plan (1) Sepsis: -as evidenced by fever, tachycardia, the latter of which has resolved -recently completed course of Bactrim for treatment of UTI -UA shows some evidence of infection -concern for possible tick-borne illness given recent finding of engorged tick; tick panel pending -on empiric doxycycline -has been afebrile since this AM with otherwise normal vital signs; continue to monitor -IVF hydration; currently on hold due to poor peripheral IV access; encourage oral hydration -denies contact with known COVID-19 individual, no recent travel, has been self isolating, no respiratory symptoms Status: Acute Qualifiers: Sepsis acute organ dysfunction status: without acute organ dysfunction Sepsis type: sepsis due to unspecified organism Qualified Code(s): A41.9 - Sepsis, unspecified organism (2) Hyponatremia: -likely secondary to dehydration due to poor oral intake -on IVF -continue to trend Na Status: Acute (3) Transaminitis: -unclear etiology currently but could be related to tick borne illness -trend LFTs -noted evidence of fatty liver infiltration on imaging; US unremarkable Status: Acute (4) Dehydration: -IVF hydration; currently on hold due to poor peripheral IV access; encourage oral hydration Status: Acute (5) HTN (hypertension): -oral antihypertensives on hold due to dehydration -normotensive; continue to monitor vital signs Status: Chronic Qualifiers: Hypertension type: essential hypertension Qualified Code(s): I10 - Essential (primary) hypertension (6) Tick fever: -recently found engorged tick on her -tick panel pending -continue empiric doxycycline Status: Acute (7) Urinary tract infection: -UA shows some evidence of infection -recently completed course of Bactrim -continue Ceftriaxone -f/u urine cx Status: Acute Qualifiers: Hematuria presence: with hematuria Urinary tract infection type: acute cystitis Qualified Code(s): N30.01 - Acute cystitis with hematuria (8) Calculus of distal right ureter: -noted 3 mm stone in distal R ureter with no evidence of hydronephrosis. Given stone size would anticipate spontaneous passage but may need Urology evaluation if persistent fever with no other infectious etiology, CVA tenderness, urinary symptoms Status: Acute Additional A&P Information -N/V have improved and she is tolerating CLD; will advance diet as tolerated -no BMs today, stool studies pending -GI ppx with PPI -DVT ppx with heparin -Dispo: home -Code status: FULL code Attestations Medical Necessity Statement*: Patient requires hospitalization for continued antibiotic treatment, IVF hydration due to persistent fever pending identification of infectious etiology. Time Spent in Patient Care: Greater than 35 minutes (>than 50% of time spent in counselling and/or direct pt care on unit) . 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
[2020-02-25] MEDS: cefTRIAXone 1,000 MG in sodium chloride 0.9% (plus) 50 ML 100 MG IM (20:42)
[2020-02-26] VITALS: BP 123/78; PULSE 83; RESP 18; TEMP 37.3; O2SAT 92
[2020-02-26] MEDS: lactated ringers 1,000 ML 75 ML IV ×2 (02:18→11:04)
[2020-02-26] MEDS: heparin 5,000 unit/mL INJ 1 mL 5000 UNIT SUBCUT ×4 (02:18→23:33)
--- NOTE | 2020-02-26 03:37 | W.ED.GENADLT ---
HPI - General Adult General: Chief complaint: Nausea/Vomiting/Diarrhea Stated complaint: worsening UTI symptoms despite outpt treatment Time Seen by Provider: 02/24/20 17:18 Source: patient Mode of arrival: ambulatory Limitations: no limitations PFSH ED PFSH: Medical History (Updated 02/25/20 @ 19:58 by Reyna Aguayo MD) HTN (hypertension) Surgical History No pertinent past surgical history Family History Mother COPD (chronic obstructive pulmonary disease) Social History Smoking and tobacco status: never smoked Alcohol intake: never Substance/Drug Use: never Lives independently: Yes Household members: spouse Marital status: Current occupational status: employed Procedures EJ/Peripheral Line Arm R: Time Out Performed: Yes Skin Cleansed in Sterile Fashion: Yes Size (gauge): 18 IV Secured and Dressing Applied: Yes Patient Tolerated Procedure: well Additional Comments: Ultrasound utilized throughout procedure. Needle visualized penetrating vein. No complications or sign of infiltration. Course Vital Signs: Vital signs: Vital Signs Temperature 99.1 F 02/26/20 00:00 Pulse Rate 83 02/26/20 00:00 Respiratory Rate 18 02/26/20 00:00 Blood Pressure 123/78 02/26/20 00:00 Pulse Oximetry 92 02/26/20 00:00 MDM - General Adult Lab Data: Labs: Lab Results 02/24/20 02/24/20 02/24/20 Range/Units 17:30 17:30 17:30 WBC 7.9 (4.0-10.0) 10^3/ uL RBC 4.32 (4.1-5.3) 10^6/u L Hgb 12.2 (11.5-15.3) g/dL Hct 37.6 (37.0-47.0) % MCV 87.0 (81-99) fL MCH 28.2 (28.0-34.0) pg MCHC 32.4 (30.0-36.0) g/dL RDW 14.2 (12.1-15.1) % Plt Count 147 (130-400) 10^3/c mm MPV 10.5 H (7.4-10.4) fL Lymph % (Auto) Not Reportable [place] % (Auto) Not Reportable Lymph # (Auto) Not Reportable [place] # (Auto) Not Reportable Nucleated RBC % (a uto) 0 % Total Counted 100 (0-100) Atypical Lymphs % 13.0 H (0-5) % Segmented Neutroph ils 57 % Abs Segm Neuts (Ma n) 4.5 (1.6-7.1) 10/cmm Absolute Lymphocyt es 3.1 (1.2-3.4) 10^3/c mm Lymphocytes (Manua l) 26 % Monocytes (Manual) 4.0 % Absolute Monocytes 0.3 (0.1-0.6) 10^3/c mm Nucleated RBCs # 0.0 /100WBC Platelet Estimate Normal (Normal) Sodium 129 L (136-145) mmol/L Potassium 3.6 (3.5-5.1) mmol/L Chloride 91 L (98-107) mmol/L Carbon Dioxide 24 (22-29) mmol/L Anion Gap 17.6 (5-19) BUN 16 (6-20) mg/dL Creatinine 0.8 (0.5-0.9) mg/dL GFR Calculation 75.0 L (90-130) mL/min Glucose 117 H (65-115) mg/dL Calculated Osmolal ity 265 L (285-295) mOsm/k g Lactic Acid (0.5-2.2) mmol/L Calcium 8.5 (8.5-10.5) mg/dL Total Bilirubin 0.5 (0.15-1.2) mg/dL AST 127 H (0-32) U/L ALT 168 H (0-33) U/L Alkaline Phosphata se 91 (35-105) IU/L Total Protein 7.4 (6.6-8.7) g/dL Albumin 4.1 (3.5-5.2) g/dL Globulin 3.3 (1.3-4.6) g/dL Lipase (13-60) U/L HCG, Qual Negative (Negative) Urine Color (Yellow) Urine Appearance (CLEAR) Urine pH (5-7) Ur Specific Gravit y (1.005-1.030) Urine Protein (Negative) Urine Glucose (UA) (Normal) Urine Ketones (Negative) Urine Blood (Negative) Urine Nitrate (Negative) Urine Bilirubin (NEGATIVE) Urine Urobilinogen (Negative) mg/dL Ur Leukocyte Cheryl ase (Negative) Urine RBC (0-2) /hpf Urine WBC (0-5) /hpf Ur Squamous Epith Cells (0-5) Urine Bacteria (NONE) Urine Mucus Influenza Type A A g (Negative) Influenza Type B A g (Negative) 02/24/20 02/24/20 02/24/20 Range/Units 17:30 17:30 17:40 WBC (4.0-10.0) 10^3/ uL RBC (4.1-5.3) 10^6/u L Hgb (11.5-15.3) g/dL Hct (37.0-47.0) % MCV (81-99) fL MCH (28.0-34.0) pg MCHC (30.0-36.0) g/dL RDW (12.1-15.1) % Plt Count (130-400) 10^3/c mm MPV (7.4-10.4) fL Lymph % (Auto) [place] % (Auto) Lymph # (Auto) [place] # (Auto) Nucleated RBC % (a uto) % Total Counted (0-100) Atypical Lymphs % (0-5) % Segmented Neutroph ils % Abs Segm Neuts (Ma n) (1.6-7.1) 10/cmm Absolute Lymphocyt es (1.2-3.4) 10^3/c mm Lymphocytes (Manua l) % Monocytes (Manual) % Absolute Monocytes (0.1-0.6) 10^3/c mm Nucleated RBCs # /100WBC Platelet Estimate (Normal) Sodium (136-145) mmol/L Potassium (3.5-5.1) mmol/L Chloride (98-107) mmol/L Carbon Dioxide (22-29) mmol/L Anion Gap (5-19) BUN (6-20) mg/dL Creatinine (0.5-0.9) mg/dL GFR Calculation (90-130) mL/min Glucose (65-115) mg/dL Calculated Osmolal ity (285-295) mOsm/k g Lactic Acid 1.6 (0.5-2.2) mmol/L Calcium (8.5-10.5) mg/dL Total Bilirubin (0.15-1.2) mg/dL AST (0-32) U/L ALT (0-33) U/L Alkaline Phosphata se (35-105) IU/L Total Protein (6.6-8.7) g/dL Albumin (3.5-5.2) g/dL Globulin (1.3-4.6) g/dL Lipase 33 (13-60) U/L HCG, Qual (Negative) Urine Color Yellow (Yellow) Urine Appearance Clear (CLEAR) Urine pH 5 (5-7) Ur Specific Gravit y 1.015 (1.005-1.030) Urine Protein 2+ H (Negative) Urine Glucose (UA) Norm (Normal) Urine Ketones 1+ H (Negative) Urine Blood 2+ H (Negative) Urine Nitrate Negative (Negative) Urine Bilirubin 1+ H (NEGATIVE) Urine Urobilinogen 4+ H (Negative) mg/dL Ur Leukocyte Cheryl ase Negative (Negative) Urine RBC 5-10 H (0-2) /hpf Urine WBC 5-10 H (0-5) /hpf Ur Squamous Epith Cells 0-4 H (0-5) Urine Bacteria 1+ H (NONE) Urine Mucus 3+ Influenza Type A A g (Negative) Influenza Type B A g (Negative) 02/24/20 Range/Units 19:13 WBC (4.0-10.0) 10^3/ uL RBC (4.1-5.3) 10^6/u L Hgb (11.5-15.3) g/dL Hct (37.0-47.0) % MCV (81-99) fL MCH (28.0-34.0) pg MCHC (30.0-36.0) g/dL RDW (12.1-15.1) % Plt Count (130-400) 10^3/c mm MPV (7.4-10.4) fL Lymph % (Auto) [place] % (Auto) Lymph # (Auto) [place] # (Auto) Nucleated RBC % (a uto) % Total Counted (0-100) Atypical Lymphs % (0-5) % Segmented Neutroph ils % Abs Segm Neuts (Ma n) (1.6-7.1) 10/cmm Absolute Lymphocyt es (1.2-3.4) 10^3/c mm Lymphocytes (Manua l) % Monocytes (Manual) % Absolute Monocytes (0.1-0.6) 10^3/c mm Nucleated RBCs # /100WBC Platelet Estimate (Normal) Sodium (136-145) mmol/L Potassium (3.5-5.1) mmol/L Chloride (98-107) mmol/L Carbon Dioxide (22-29) mmol/L Anion Gap (5-19) BUN (6-20) mg/dL Creatinine (0.5-0.9) mg/dL GFR Calculation (90-130) mL/min Glucose (65-115) mg/dL Calculated Osmolal ity (285-295) mOsm/k g Lactic Acid (0.5-2.2) mmol/L Calcium (8.5-10.5) mg/dL Total Bilirubin (0.15-1.2) mg/dL AST (0-32) U/L ALT (0-33) U/L Alkaline Phosphata se (35-105) IU/L Total Protein (6.6-8.7) g/dL Albumin (3.5-5.2) g/dL Globulin (1.3-4.6) g/dL Lipase (13-60) U/L HCG, Qual (Negative) Urine Color (Yellow) Urine Appearance (CLEAR) Urine pH (5-7) Ur Specific Gravit y (1.005-1.030) Urine Protein (Negative) Urine Glucose (UA) (Normal) Urine Ketones (Negative) Urine Blood (Negative) Urine Nitrate (Negative) Urine Bilirubin (NEGATIVE) Urine Urobilinogen (Negative) mg/dL Ur Leukocyte Cheryl ase (Negative) Urine RBC (0-2) /hpf Urine WBC (0-5) /hpf Ur Squamous Epith Cells (0-5) Urine Bacteria (NONE) Urine Mucus Influenza Type A A g Negative (Negative) Influenza Type B A g Negative (Negative) Discharge Plan Discharge Patient Disposition: Admitted As Inpatient Admit Provider: Giovanny Becerra Clinical Impression: Tick fever, Calculus of distal right ureter Urinary tract infection Qualifiers: Urinary tract infection type: acute cystitis Hematuria presence: with hematuria Qualified Code(s): N30.01 - Acute cystitis with hematuria Condition: Stable Referrals: Umair Quick MD [Primary Care Provider] - Discharge Date/Time: 02/24/20 23:06 Coding Level of Care Code ED [employer] Drawing Operator for Juan F Casillas
[2020-02-26 04:00] VITALS: BP 117/71; PULSE 91; RESP 18; TEMP 38.2; O2SAT 93
[2020-02-26] MEDS: acetaminophen 325 mg Tablet 650 MG PO ×2 (04:12→23:33)
[2020-02-26 05:43] LABS: Basophils # 0.1 10^3/uL (0.0-0.1); Basophils % 0.7 %; Eosinophils % 0.1 %; Hematocrit 33.5 % (37.0-47.0); Hemoglobin 10.8 g/dL (11.5-15.3); Lymphocytes # 4.9 10^3/uL (0.8-4.8); Lymphocytes % 50.2 %; Mean Corpuscular HGB Conc 32.2 g/dL (30.0-36.0); Mean Corpuscular Hemoglobin 27.5 pg (28.0-34.0); Mean Corpuscular Volume 85.2 fL (81-99); Mean Platelet Volume 10.9 fL (7.4-10.4); Monocytes # 0.8 10^3/uL (0.2-0.9); Monocytes % 8.1 %; Neutrophils # 3.95 10^3/uL (1.8-7.7); Neutrophils % 40.5 %; Nucleated Red Blood Cells % 0 %; Platelet Count 184 10^3/cmm (130-400); Red Blood Count 3.93 10^6/uL (4.1-5.3); Red Cell Distribution Width 14.6 % (12.1-15.1); White Blood Count 9.8 10^3/uL (4.0-10.0)
[2020-02-26 06:07] LABS: Alanine Aminotransferase 130 U/L (0-33); Albumin Level 3.4 g/dL (3.5-5.2); Alkaline Phosphatase 72 IU/L (35-105); Anion Gap 14.9 (5-19); Aspartate Amino Transferase 85 U/L (0-32); Blood Urea Nitrogen 8 mg/dL (6-20); Calcium 7.9 mg/dL (8.5-10.5); Carbon Dioxide 24 mmol/L (22-29); Chloride 96 mmol/L (98-107); Globulin 3.8 g/dL (1.3-4.6); Glomerular Filtration Rate 104.6 mL/min (90-130); Glucose 105 mg/dL (65-115); Osmolality Calculated 270 mOsm/kg (285-295); Sodium 132 mmol/L (136-145); Total Bilirubin 0.4 mg/dL (0.15-1.2); Total Protein 7.2 g/dL (6.6-8.7)
[2020-02-26 06:30] LABS: Potassium 2.9 mmol/L (3.5-5.1)
[2020-02-26 06:49] LABS: Slide Review Slide Review Perform
[2020-02-26] MEDS: potassium chloride ER 10 mEq Tablet 40 MEQ PO (07:08)
[2020-02-26 07:49] VITALS: BP 118/75; PULSE 83; RESP 18; TEMP 36.7; O2SAT 97
[2020-02-26] MEDS: pantoprazole DR 40 mg Tablet PO (08:28)
[2020-02-26] MEDS: doxycycline 100 mg Tablet PO ×2 (08:28→18:08)
[2020-02-26] MEDS: potassium chloride oral liq 20 mEq/15 mL UDC 40 MEQ PO (11:04)
[2020-02-26 11:15] VITALS: BP 125/77; PULSE 93; RESP 18; TEMP 36.7; O2SAT 95
--- NOTE | 2020-02-26 13:15 | P.PN_ITS ---
Subjective Subjective: Interval history: Fever curve seems to be decreasing with Tmax- 102.8 F, currently afebrile, last temp was around 0400 (100.7F). Able to get peripheral IV access established last night so able to resume IVF. VSS, had 1500 mL urine output overnight. Potassium replaced. at bedside during my visit, she is sitting by the window, seems to be in good spirits, has had an improved appetite and good oral intake so far today. Ambulated in the hallway earlier this afternoon. Medications: Reviewed: Yes Medication Review Details: Active Medications Generic Name Dose Route Start Last Admin Trade Name Freq PRN Reason Stop Dose Admin Acetaminophen 650 mg 02/24/20 23:29 02/26/20 04:12 Tylenol PO 650 mg Q6H PRN Administration Mild/Mod Pain Or Temp >/= 101 Doxycycline Monohy drate 100 mg 02/26/20 09:00 02/26/20 08:28 Vibramycin PO 100 mg BID MARCIN Administration Protocol Heparin Sodium (Be ef Lung) 5,000 unit 02/24/20 23:30 02/26/20 08:28 Heparin SUBCUT 5,000 unit Q8H MARCIN Administration Lactated Ringer's 1,000 mls @ 75 ml s/hr 02/24/20 23:30 02/26/20 11:04 Lactated Ringers IV 75 mls/hr .[id number] MARCIN Administration Ceftriaxone Sodium 1,000 mg/ 50 mls @ 100 mls/ hr 02/25/20 20:00 02/25/20 20:42 Sodium Chloride IM 100 mls/hr Q24H MARCIN Administration Protocol Ondansetron HCl 4 mg 02/24/20 23:25 Zofran IVP Q4H PRN NAUSEA AND VOMITI NG Pantoprazole Sodiu m 40 mg 02/26/20 09:00 02/26/20 08:28 Protonix PO 40 mg DAILY MARCIN Administration No Known Allergies Allergy (Verified 02/18/20 12:26) Vitals/I&O/Wt Last Vital Signs Temp 98.0 F 02/26/20 11:15 Pulse 93 02/26/20 11:15 Resp 18 02/26/20 11:15 BP 125/77 02/26/20 11:15 Pulse Ox 95 02/26/20 11:15 02/25/20 02/26/20 02/26/20 22:59 06:59 14:59 Intake Total 1000 / 2128.75 987.5 / 987.5 Output Total 1500 / 1500 400 / 400 Balance -500 / 628.75 587.5 / 587.5 Weight last 48 hrs Weight 8.165 kg Weight 80.15 kg Weight 77.111 kg Physical Exam Const: COMMON NORMALS: no acute distress and patient oriented x3 GENERAL APPEARANCE: cooperative and comfortable; not ill appearing NUTRITIONAL APPEARANCE: overweight ORIENTAT ION/CONSCIOUSNESS: Yes awake HENMT: COMMON NORMALS: normocephalic, atraumatic, hearing grossly normal bilaterally and moist oral mucous membranes HEAD & SCALP: normocephalic and atraumatic Eye: COMMON NORMALS: Equal, round and reactive pupils present, EOMs intact bilaterally and conjunctivae normal CONJUNCTIVA: Yes conjunctivae normal PUPIL: Yes Equal, round and reactive pupils present Neck/C-Spine: COMMON NORMALS: full ROM GENERAL: Yes normal visual inspection and Yes trachea midline Resp: COMMON NORMALS: normal respiratory effort, No retractions, No use of accessory muscles and clear to auscultation bilaterally EFFORT & INSPECTION: Yes able to speak in complete sentences, Yes symmetric chest movement and No tachypneic AUSCULTATION: clear to auscultation bilaterally Cardio: COMMON NORMALS: regular rate, regular rhythm, S1 normal heart sound present, S2 normal heart sound present and No murmurs present (Cardio) RATE: regular rate RHYTHM: regular rhythm HEART SOUNDS: S1 normal heart sound present and S2 normal heart sound present GI: COMMON NORMALS: Normal to inspection, nondistended, normoactive bowel sounds present, Soft to palpation and non-tender PALPATION: Yes Soft to palpation Extremity: COMMON NORMALS: normal to inspection, full ROM and no clubbing, cyanosis or edema; negative for no pedal edema Neuro: COMMON NORMALS: patient oriented x3, moves all extremities, no focal motor deficits and no sensory deficits noted Psych: COMMON NORMALS: mental status grossly normal, Normal thought process present, cooperative, normal affect and speech normal SPEECH: Yes normal speech THOUGHT PROCESS: Normal thought process present Skin: COMMON NORMALS: no rashes or lesions noted, no jaundice, no petechiae and no mottling GENERAL SKIN EXAM: no rashes or lesions noted Data : 02/26/20 05:12 02/26/20 05:12 Micro: Microbiology 02/24/20 17:40 Urine Culture - Preliminary Urine,Clean Catch 02/24/20 17:25 Blood Culture - Preliminary Blood NEGATIVE TO DATE 02/24/20 17:30 Blood Culture - Preliminary Blood NEGATIVE TO DATE A&P Assessment and plan (1) Sepsis: -as evidenced by fever, tachycardia, the latter of which has resolved -recently completed course of Bactrim for treatment of UTI -UA shows some evidence of infection. Urine cx prelim negative -concern for possible tick-borne illness given recent finding of engorged tick; tick panel pending -on empiric doxycycline -normal vital signs; continue to monitor; Tmax-102.8 F with last fever (100.7F) around 0400, has been afebrile since -IVF hydration; resumed after establishing peripheral IV access; encourage oral hydration -denies contact with known COVID-19 individual, no recent travel, has been self isolating, no respiratory symptoms Status: Resolved Qualifiers: Sepsis acute organ dysfunction status: without acute organ dysfunction Sepsis type: sepsis due to unspecified organism Qualified Code(s): A41.9 - Sepsis, unspecified organism (2) Hyponatremia: -likely secondary to dehydration due to poor oral intake -on IVF -continue to trend Na; improving Status: Acute (3) Transaminitis: -unclear etiology currently but could be related to tick borne illness -trend LFTs; downtrending -noted evidence of fatty liver infiltration on imaging; US unremarkable Status: Acute (4) Dehydration: -IVF hydration; encourage oral hydration Status: Acute (5) HTN (hypertension): -oral antihypertensives on hold due to dehydration -normotensive; continue to monitor vital signs Status: Chronic Qualifiers: Hypertension type: essential hypertension Qualified Code(s): I10 - Essential (primary) hypertension (6) Tick fever: -recently found engorged tick on her -tick panel pending -continue empiric doxycycline Status: Acute (7) Urinary tract infection: -UA shows some evidence of infection -recently completed course of Bactrim -continue Ceftriaxone -urine cx: prelim negative Status: Acute Qualifiers: Hematuria presence: with hematuria Urinary tract infection type: acute cystitis Qualified Code(s): N30.01 - Acute cystitis with hematuria (8) Calculus of distal right ureter: -noted 3 mm stone in distal R ureter with no evidence of hydronephrosis. Given stone size would anticipate spontaneous passage but may need Urology evaluation if persistent fever with no other infectious etiology, CVA tenderness, urinary symptoms Status: Acute Additional A&P Information -N/V have improved and she is tolerating CLD; will advance diet as tolerated -small BM today, stool studies pending -GI ppx with PPI -DVT ppx with heparin -Dispo: home -Code status: FULL code Attestations Medical Necessity Statement*: Patient requires hospitalization for continued IVF hydration, antibiotics pending being fever free for at least 24 hrs. Time Spent in Patient Care: 16 - 35 minutes (>than 50% of time spent in counselling and/or direct pt care on unit) . Coding Level of Care Code Acute Switchboard Operator for Chg Fwd Exam Comprehensive Diagnoses Sepsis A41.9 Sepsis acute organ dysfunction status: without acute organ dysfunction Sepsis type: sepsis due to unspecified organism Hyponatremia E87.1 Transaminitis R74.0 Dehydration E86.0 HTN (hypertension) I10 Hypertension type: essential hypertension Tick fever A93.8 Urinary tract infection N30.01 Hematuria presence: with hematuria Urinary tract infection type: acute cystitis Calculus of distal right ureter N20.1
[2020-02-26 15:46] VITALS: BP 131/80; PULSE 105; RESP 18; TEMP 36.7; O2SAT 96
[2020-02-26] MEDS: cefTRIAXone 1,000 MG in sodium chloride 0.9% (plus) 50 ML 100 MG IV (19:35)
[2020-02-26 19:41] VITALS: BP 127/67; PULSE 106; RESP 18; TEMP 36.8; O2SAT 95
[2020-02-27] VITALS: BP 124/72; PULSE 99; RESP 18; TEMP 36.6; O2SAT 96
[2020-02-27 04:00] VITALS: BP 133/83; PULSE 76; RESP 18; TEMP 36.6; O2SAT 96
[2020-02-27 05:22] LABS: Basophils # 0.1 10^3/uL (0.0-0.1); Basophils % 0.6 %; Eosinophils # 0.1 10^3/uL (0.0-0.8); Eosinophils % 0.6 %; Hematocrit 32.4 % (37.0-47.0); Hemoglobin 10.4 g/dL (11.5-15.3); Lymphocytes # 5.5 10^3/uL (0.8-4.8); Lymphocytes % 59.2 %; Mean Corpuscular HGB Conc 32.1 g/dL (30.0-36.0); Mean Corpuscular Hemoglobin 27.7 pg (28.0-34.0); Mean Corpuscular Volume 86.4 fL (81-99); Mean Platelet Volume 10.9 fL (7.4-10.4); Monocytes # 0.7 10^3/uL (0.2-0.9); Monocytes % 7.8 %; Neutrophils # 2.88 10^3/uL (1.8-7.7); Nucleated Red Blood Cells % 0 %; Platelet Count 226 10^3/cmm (130-400); Red Blood Count 3.75 10^6/uL (4.1-5.3); Red Cell Distribution Width 14.6 % (12.1-15.1); White Blood Count 9.3 10^3/uL (4.0-10.0)
[2020-02-27 07:46] VITALS: BP 135/85; PULSE 89; RESP 18; TEMP 36.7; O2SAT 96
[2020-02-27 07:54] LABS: Alanine Aminotransferase 103 U/L (0-33); Albumin Level 3.2 g/dL (3.5-5.2); Alkaline Phosphatase 71 IU/L (35-105); Anion Gap 17.4 (5-19); Aspartate Amino Transferase 63 U/L (0-32); Blood Urea Nitrogen 5 mg/dL (6-20); Calcium 8.3 mg/dL (8.5-10.5); Carbon Dioxide 22 mmol/L (22-29); Chloride 100 mmol/L (98-107); Glomerular Filtration Rate 129.1 mL/min (90-130); Glucose 120 mg/dL (65-115); Magnesium 2.3 mg/dL (1.7-2.3); Osmolality Calculated 279 mOsm/kg (285-295); Potassium 3.4 mmol/L (3.5-5.1); Sodium 136 mmol/L (136-145); Total Bilirubin 0.4 mg/dL (0.15-1.2); Total Protein 7.2 g/dL (6.6-8.7)
[2020-02-27] MEDS: pantoprazole DR 40 mg Tablet PO (07:56)
[2020-02-27] MEDS: heparin 5,000 unit/mL INJ 1 mL 5000 UNIT SUBCUT (07:57)
[2020-02-27] MEDS: doxycycline 100 mg Tablet PO (07:57)
[2020-02-27 08:00] LABS: Slide Review Slide Review Perform
--- NOTE | 2020-02-27 08:52 | PM.DCS ---
Discharge Providers Date of Admission: 02/24/20 23:33 Date of Discharge: February 27, 2020 Attending Provider at Admission: Giovanny Becerra Attending Provider at Discharge: Reyna Aguayo MD Primary Care Provider: Umair Quick MD Diagnoses at Discharge Discharge Diagnosis (1) Sepsis: Status: Resolved Problem details: -as evidenced by fever, tachycardia, both of which have resolved -recently completed course of Bactrim for treatment of UTI -UA shows some evidence of infection. Urine cx prelim negative -concern for possible tick-borne illness given recent finding of engorged tick; tick panel pending -on empiric doxycycline -normal vital signs; continue to monitor; last fever (100.7 F) around 0400, has been afebrile since -IVF hydration; encourage oral hydration -denies contact with known COVID-19 individual, no recent travel, has been self isolating, no respiratory symptoms Qualifiers: Sepsis acute organ dysfunction status: without acute organ dysfunction Sepsis type: sepsis due to unspecified organism Qualified Code(s): A41.9 - Sepsis, unspecified organism (2) Hyponatremia: Status: Acute Problem details: -likely secondary to dehydration due to poor oral intake -on IVF -continue to trend Na; improving (3) Transaminitis: Status: Acute Problem details: -unclear etiology currently but could be related to tick borne illness -trend LFTs; downtrending -noted evidence of fatty liver infiltration on imaging; US unremarkable (4) Dehydration: Status: Resolved Problem details: -IVF hydration; encourage oral hydration (5) HTN (hypertension): Status: Chronic Problem details: -oral antihypertensives on hold due to dehydration -normotensive; continue to monitor vital signs Qualifiers: Hypertension type: essential hypertension Qualified Code(s): I10 - Essential (primary) hypertension (6) Tick fever: Status: Acute Problem details: -recently found engorged tick on her -tick panel pending -continue empiric doxycycline (7) Urinary tract infection: Status: Acute Problem details: -UA shows some evidence of infection -recently completed course of Bactrim -d/c Ceftriaxone -urine cx: prelim negative Qualifiers: Hematuria presence: with hematuria Urinary tract infection type: acute cystitis Qualified Code(s): N30.01 - Acute cystitis with hematuria (8) Calculus of distal right ureter: Status: Acute Problem details: -noted 3 mm stone in distal R ureter with no evidence of hydronephrosis. Given stone size would anticipate spontaneous passage but may need Urology evaluation if persistent fever with no other infectious etiology, CVA tenderness, urinary symptoms Reason for Visit Reason for Visit: n/v,poss uti Hospital Course Hospital Course: Patient was admitted to the medical surgical floor and started on IV antibiotics secondary to sepsis with suspicion for tick fever and noted urinalysis indicative of infection. IV fluid hydration was also initiated secondary to dehydration and noted hyponatremia. There was some difficulty establishing and maintaining peripheral IV access despite multiple attempts although we were able to get a peripheral IV under ultrasound guidance allowing for continued IV fluid hydration. Electrolytes were monitored and replaced as needed. Patient was febrile during initial part of the hospital course but as of this morning has been afebrile for at least 24 hours. This correlates with symptomatic improvement. She has had very good urine output consistently, has been maintained on room air, been normotensive, with some intermittent tachycardia though heart rate has been well controlled for the most part. She has been ambulatory, and is tolerating oral intake well. Urine culture has been negative and she has no urinary symptoms so will d/c Ceftriaxone. Tick panel is pending and with her initial presentation, would continue doxycycline for several more days. She is advised to continue appropriate oral hydration, to limit exposure with ongoing pandemic. She is to seek medical attention immediately if symptoms recur. HCTZ has been discontinued and lisinopril dose has been decreased as blood pressure has been well controlled and to decrease risk of dehydration and subsquent hypotension particularly with diuretic use. She is to follow-up with her primary care provider within 1 week. Of note patient was found to have a 3 mm distal right ureteral stone, anticipate spontaneous passage but if recurrent fever, urinary symptoms, CVA tenderness may require follow-up imaging and urology evaluation. Discharge Summary: -Patient to follow-up with her primary care physician within 1 week. Physical Exam Const: COMMON NORMALS: no acute distress and patient oriented x3 GENERAL APPEARANCE: cooperative and comfortable; not ill appearing NUTRITIONAL APPEARANCE: overweight ORIENTATION/CONSCIOUSNESS: Yes awake HENMT: COMMON NORMALS: normocephalic, atraumatic, hearing grossly normal bilaterally and moist oral mucous membranes HEAD & SCALP: normocephalic and atraumatic Eye: COMMON NORMALS: Equal, round and reactive pupils present, EOMs intact bilaterally and conjunctivae normal CONJUNCTIVA: Yes conjunctivae normal PUPIL: Yes Equal, round and reactive pupils present Neck/C-Spine: COMMON NORMALS: full ROM GENERAL: Yes normal visual inspection and Yes trachea midline Resp: COMMON NORMALS: normal respiratory effort, No retractions, No use of accessory muscles and clear to auscultation bilaterally EFFORT & INSPECTION: Yes able to speak in complete sentences, Yes symmetric chest movement and No tachypneic AUSCULTATION: clear to auscultation bilaterally Cardio: COMMON NORMALS: regular rate, regular rhythm, S1 normal heart sound present, S2 normal heart sound present and No murmurs present (Cardio) RATE: regular rate RHYTHM: regular rhythm HEART SOUNDS: S1 normal heart sound present and S2 normal heart sound present GI: COMMON NORMALS: Normal to inspection, nondistended, normoactive bowel sounds present, Soft to palpation and non-tender PALPATION: Yes Soft to palpation Extremity: COMMON NORMALS: normal to inspection, full ROM and no clubbing, cyanosis or edema; negative for no pedal edema Neuro: COMMON NORMALS: patient oriented x3, moves all extremities, no focal motor deficits and no sensory deficits noted Psych: COMMON NORMALS: mental status grossly normal, Normal thought process present, cooperative, normal affect and speech normal SPEECH: Yes normal speech THOUGHT PROCESS: Normal thought process present Skin: COMMON NORMALS: no rashes or lesions noted, no jaundice, no petechiae and no mottling GENERAL SKIN EXAM: no rashes or lesions noted Discharge Data Data Completed and Pending: Completed Studies During Hospitalization Category Date Time Status CT abdomen pelvis w con* [id number] Urge nt Cat Scan 02/24/20 17:52 Completed XR chest 1V mary ble [id number] Urgent Exams 02/24/20 17:53 Completed US gall bladder 7 [id number] Urgent Ultrasound 02/24/20 17:52 Completed Pending at discharge Category Date Time Status Blood Culture Sta t Lab 02/24/20 17:25 Results Clostridioides Di fficile PCR Routin e Lab 02/24/20 23:25 Uncollected Tick Panel Stat Lab 02/24/20 19:20 Received Urine Culture Sta t Lab 02/24/20 17:40 Results Labs from last 24 hours 02/27/20 02/27/20 06:59 05:00 WBC 9.3 RBC 3.75 L Hgb 10.4 L Hct 32.4 L MCV 86.4 MCH 27.7 L MCHC 32.1 RDW 14.6 Plt Count 226 MPV 10.9 H Neut % (Auto) 31.0 Lymph % (Auto) 59.2 [place] % (Auto) 7.8 Eos % (Auto) 0.6 Baso % (Auto) 0.6 Neut # (Auto) 2.88 Lymph # (Auto) 5.5 H [place] # (Auto) 0.7 Eos # (Auto) 0.1 Baso # (Auto) 0.1 Nucleated RBC % (a uto) 0 Nucleated RBCs # 0.0 Sodium 136 Potassium 3.4 L Chloride 100 Carbon Dioxide 22 Anion Gap 17.4 BUN 5 L Creatinine 0.5 GFR Calculation 129.1 Glucose 120 H Calculated Osmolal ity 279 L Calcium 8.3 L Magnesium 2.3 Total Bilirubin 0.4 AST 63 H ALT 103 H Alkaline Phosphata se 71 Total Protein 7.2 Albumin 3.2 L Globulin 4.0 Vitals: Last Vital Signs Temp 98.0 F 02/27/20 07:46 Pulse 89 02/27/20 07:46 Resp 18 02/27/20 07:46 BP 135/85 02/27/20 07:46 Pulse Ox 96 02/27/20 07:46 Discharge Plan Discharge Patient Disposition: Home, Self-Care Condition: Stable Prescriptions: New doxycycline monohydrate 100 mg Tablet 100 mg PO BID 7 Days Qty: 14 RF: 0 Continued aspirin [Adult Aspirin Regimen] 81 mg tablet,delayed release (DR/EC) 81 mg PO DAILY RF: 0 Changed lisinopril 20 mg tablet 10 mg PO DAILY Qty: 30 RF: 0 Discontinued hydrochlorothiazide 25 mg tablet 25 mg PO DAILY RF: 0 sulfamethoxazole-trimethoprim 800-160 mg tablet 1 tab PO BID 5 Days Qty: 10 RF: 0 Discharge Orders: Discharge Order (Routine); Ordered 02/27/20 Ordered By: Reyna Aguayo Referrals: Umair Quick MD [Primary Care Provider] - 4-7 days (Post hospital discharge follow up. On doxycycline due to tick fever, tick panel pending. ) Discharge Diet: Advance as tolerated Discharge Activity: Increase activity as tolerated Activity Restrictions/Additional Instructions: -Please continue to practice good and frequent hand washing, wear a mask and practice social distancing when around others. -Please note decreased dose of Lisinopril and discontinuation of hydrochlorothiazide. Please monitor your blood pressure at home at least 2-3 times/week, preferably in the safemaker. Keep a log for review with Dr. Quick. Discharge Attestations Time Spent in Discharge Care*: greater than 30 min Specific Discharge Activities: Specific discharge activities: educating patient, educating and/or supporting family/caregiver, discussing with medical case worker/social workers/dc planners, documenting/other paperwork and evaluating patient/reviewing data Status at Discharge: Cognitive status at discharge: cognitively intact, Behavioral status at discharge: cooperative, Functional status at discharge: independent ambulation Overall status at discharge: patient is progressing back to baseline Quality Metrics Clinical Quality Measures During this hospital stay, did patient experience: None Coding Level of Care Code Acute Communications Supervisor for g Fwd Exam Comprehensive Diagnoses Sepsis A41.9 Sepsis acute organ dysfunction status: without acute organ dysfunction Sepsis type: sepsis due to unspecified organism Hyponatremia E87.1 Transaminitis R74.0 Dehydration E86.0 HTN (hypertension) I10 Hypertension type: essential hypertension Tick fever A93.8 Urinary tract infection N30.01 Hematuria presence: with hematuria Urinary tract infection type: acute cystitis Calculus of distal right ureter N20.1
--- NOTE | 2020-02-27 10:41 | PC.NURSE ---
Cath removed at 7, patient voided at 0800, 100mls light pink 0900 100mls clear, no color 1000 50mls clear, no color Bladder scan after void 78mls. No distention.
[2020-02-27 11:33] VITALS: BP 137/83; PULSE 88; RESP 18; TEMP 36.7; O2SAT 97
--- NOTE | 2020-02-27 14:14 | PC.NURSE ---
Patient's IVPIID removed intact. Patient has no pain at this time. No nausea. Patient up to BR by self and voiding clear yellow urine, no odor. Patient was able to demonstrate how to use her urine stainer and states she will continue straining urine at home.
[2020-02-27 15:09] VITALS: BP 137/83; PULSE 88; RESP 18; TEMP 36.7; O2SAT 97
[2020-02-27 15:21] VITALS: BP 137/83; PULSE 88; RESP 18; TEMP 36.7; O2SAT 97
[2020-02-27 16:00] LABS: Lyme AB IGG, Blot NEGATIVE (NEGATIVE)
[2020-03-03 17:21] LABS: RMSF IGG NOT DETECTED; RMSF IGM NOT DETECTED
[2020-03-03 22:35] LABS: E. Chaffeensis AB IGG <1:64; E. Chaffeensis AB IGM <1:20
== END 2020-02-27 15:21 | disposition home or self-care (01) | DRG 872 ==
LOC: ER 20:58 → MEDSURG 22:08
PROVIDERS: Emergency Medicine; Physician Assistant; Admitting Provider Internal Medicine; PCP Family Medicine; Visit Provider Family Medicine
DX: A41.9 Sepsis, unspecified organism (principal); A93.8 Other specified arthropod-borne viral fevers; E87.1 Hypo-osmolality and hyponatremia; N30.01 Acute cystitis with hematuria; N20.1 Calculus of ureter; E86.0 Dehydration; I10 Essential (primary) hypertension; R19.7 Diarrhea, unspecified
CPT/HCPCS: 12345; 36415; 71045; 74177; 76705; 80053; 80074; 81001; 83605; 83690; 83735; 84703; 85007; 85025; 85730; 86618; 86666; 86757; 87040; 87086; 87804; 96372; 96375; 99283; C9113; G0378; J0696; J1644; J2270; J2405; J3490; J7030; Q9967

== ENCOUNTER → 2020-03-30 08:31 | Outpatient (BNVA) | payer BC, SELFPAY | PROVIDERS: PCP Family Medicine; Visit Provider Family Medicine | DX: E87.6 Hypokalemia (principal) | CPT/HCPCS: 80048; 85025 ==

== ENCOUNTER → 2020-03-31 09:52 | Outpatient (BNVA) | payer BC, SELFPAY | PROVIDERS: PCP Family Medicine; Visit Provider Family Medicine | DX: E87.6 Hypokalemia (principal) | CPT/HCPCS: 80076 ==

== ENCOUNTER → 2021-04-26 15:40 | Outpatient (BNVA) | payer BC, SELFPAY | PROVIDERS: PCP Family Medicine; Visit Provider Family Medicine | DX: Z00.00 Encounter for general adult medical examination without abnormal findings (principal); E78.00 Pure hypercholesterolemia, unspecified; E87.6 Hypokalemia; I47.1 Supraventricular tachycardia; L73.9 Follicular disorder, unspecified; I10 Essential (primary) hypertension; Z68.29 Body mass index [BMI] 29.0-29.9, adult; Z71.89 Other specified counseling | CPT/HCPCS: 80053; 80061; 85025 ==

== ENCOUNTER 2021-11-03 | Outpatient (CLI) | payer BC, SELFPAY | END 2021-11-03 23:59 | disposition home or self-care (01) | LOC: RAD 03-14 12:15 | PROVIDERS: PCP Family Medicine; Visit Provider Family Medicine | DX: E87.6 Hypokalemia (principal); E78.00 Pure hypercholesterolemia, unspecified; I10 Essential (primary) hypertension | CPT/HCPCS: 80053; 80061; 85025 ==

== ENCOUNTER 2021-11-25 07:38 | Outpatient (CLI) | payer BC, SELFPAY ==
--- NOTE | 2021-11-25 07:45 | MM_ITS ---
WS: [id number] Bilateral screening 3D tomosynthesis digital mammogram, 11/25/2021 Clinical Data: SCREENING Comparison: 09/27/2018, 05/31/2017, 08/26/2015, 06/06/2011, 06/07/2004. Findings: The breast parenchymal pattern shows fat replacement. No spiculated masses or clustered calcification s are seen. There are no secondary signs of carcinoma. MM/[place] [id number] Impression: 1. Negative bilateral mammogram unchanged. 2. Recommend annual screening mammograms. BIRADS: 1-Negative FOLLOW UP: 1 Year Follow-up The CAD material checker was used.
== END 2021-11-25 07:39 | disposition home or self-care (01) ==
LOC: RAD 07:41
PROVIDERS: PCP Family Medicine; Visit Provider Family Medicine
DX: Z12.31 Encounter for screening mammogram for malignant neoplasm of breast (principal)
CPT/HCPCS: 77063; 77067

== ENCOUNTER → 2022-11-14 11:23 | Outpatient (BNVA) | payer BC, SELFPAY | PROVIDERS: PCP Family Medicine; Visit Provider Family Medicine | DX: E78.00 Pure hypercholesterolemia, unspecified (principal); I10 Essential (primary) hypertension | CPT/HCPCS: 80053; 80061; 85025 ==

== ENCOUNTER → 2024-05-13 10:44 | Outpatient (BNVA) | payer BC, SELFPAY | PROVIDERS: PCP Family Medicine; Visit Provider Family Medicine | DX: I10 Essential (primary) hypertension (principal); E78.00 Pure hypercholesterolemia, unspecified | CPT/HCPCS: 80053; 80061; 85025 ==

== ENCOUNTER → 2024-10-13 10:01 | Outpatient (BNVA) | payer BC, SELFPAY | PROVIDERS: PCP Family Medicine; Visit Provider Registered Nurse Neonatal Intensive Care | DX: R05.9 Cough, unspecified (principal); J06.9 Acute upper respiratory infection, unspecified | CPT/HCPCS: 87071; 87400; 87880 ==